=== PATIENT | female | born 2000 | race Asian ===

== ENCOUNTER 2025-04-07 14:09 | Emergency (ER) | payer OTHER, SELFPAY ==
[2025-04-07] VITALS (19 sets, daily range): BP systolic 107–136; BP diastolic 58–105; PULSE 54–85; RESP 18; TEMP 36.4; O2SAT 98–100; BMI 22.8
[2025-04-07 15:02] LABS: Add Manual Diff / Slide Review NO; Hematocrit 37.7 % (36-46); Hemoglobin 12.8 g/dL (12.0-16.0); Lymphocytes Absolute Auto 2800 /uL (1100-4500); Mean Corpuscular HGB Conc 34.0 % (30-36); Mean Corpuscular Hemoglobin 29.5 PG (26-34); Mean Corpuscular Volume 86.7 fL (80-100); Platelet Count 215 X10^3/uL (150-400)
[2025-04-07 15:11] LABS: Lipase 40 U/L (23-300)
[2025-04-07 15:12] LABS: Albumin 4.5 g/dL (3.5-5.0); Albumin Globulin Ratio 1.2 (1.0-2.8); Blood Urea Nitrogen 10 mg/dL (7-17); Calcium 9.5 mg/dL (8.4-10.2); Carbon Dioxide 22 mmol/L (22-32); Chloride 107 mmol/L (98-107); Culture Indicated Urine Cult Not Indicated; Estimated Glomerular Filt Rate > 60 mL/min (>60); Globulin 3.7 g/dL (1.7-4.1); Glucose 88 mg/dL (70-99); HEMOLYSIS < 15 (0-50); Potassium 4.4 mmol/L (3.4-5.1); Sodium 139 mmol/L (137-145); Total Protein 8.2 g/dL (6.3-8.2)
[2025-04-07 15:13] LABS: Alanine Aminotransferase 23 IU/L (<35); Alkaline Phosphatase 73 U/L (38-126)
--- NOTE | 2025-04-07 15:26 | EKG_ITS ---
[facility] [address], [place] [address] Test Date: 2025-04-07 Pat Name: Sharla Stratton Department: [facility] Room: Gender: Female Bladder Trimmer: SUDHIR : 2000 Requested By: Order Number: [id number] Reading MD: Cole Keller MD Measurements Intervals [place] Rate: 51 P: 57 ME: 128 QRS: 60 QRSD: 76 T: 50 QT: 388 QTc: 357 Interpretive Statements Sinus bradycardia with sinus arrhythmia Electronically Signed On 04-07-2025 17:16:39 PDT by Cole Keller MD
--- NOTE | 2025-04-07 16:29 | ED_ITS ---
HPI - Abdominal Pain General Chief Complaint: Abdominal Pain Stated Complaint: Lower Abdominal Pain, Right Rib Time Seen by Provider: 04/07/25 16:28 Source: patient, RN notes reviewed and old records reviewed Mode of arrival: Ambulatory Limitations: no limitations History of Present Illness HPI narrative: 24-year-old female with complaint of right upper abdominal pain intermittently in waves it radiates to the back had similar episode about a year ago Related Data Allergies Allergy/AdvReac Type Severity Reaction Status Date / Time No Known Drug Allergies Allergy Verified 04/07/25 14:20 Review of Systems Review of Systems ROS Unobtainable: All systems reviewed & are unremarkable except as noted in HPI and below Patient History Smoking Status: Never smoker Exam Initial Vital Signs Initial Vital Signs: Vital Signs Temperature 97.5 F L 04/07/25 14:19 Pulse Rate 79 04/07/25 14:19 Respiratory Rate 18 04/07/25 14:19 Blood Pressure 136/87 04/07/25 14:19 Pulse Oximetry 98 04/07/25 14:19 Oxygen Delivery Method Room Air 04/07/25 14:19 Course Orders Ordered: ED Orders 04/07/25 14:24 EKG-12 Lead Stat 04/07/25 14:45 Complete Blood Count AUTO DIFF Stat Comprehensive Metabolic Panel Stat Lipase Stat Test Urine Stat Urine Microscopic Stat 04/07/25 14:55 Urine Culture Stat Ondansetron HCl (Ondansetron 4 Mg/2 Ml Inj) 4 mg IV NOW PRN PRN Reason: Nausea And Vomiting Ondansetron HCl (Ondansetron 4 Mg Odt) 4 mg PO NOW PRN PRN Reason: Nausea And Vomiting Vital Signs Vital signs: Vital Signs - 8 hr 04/07/25 14:19 04/07/25 14:57 04/07/25 14:58 Temperature 97.5 F L Pulse Rate 79 56 L Respiratory Rate 18 18 Blood Pressure 136/87 108/58 L Pulse Oximetry 98 99 Oxygen Delivery Method Room Air 04/07/25 14:58 04/07/25 15:00 04/07/25 15:00 Temperature Pulse Rate 61 67 Respiratory Rate 18 Blood Pressure 112/68 Pulse Oximetry 98 98 Oxygen Delivery Method 04/07/25 15:30 04/07/25 15:30 04/07/25 16:00 Temperature Pulse Rate 57 L 57 L Respiratory Rate Blood Pressure 114/80 Pulse Oximetry 98 98 Oxygen Delivery Method 04/07/25 16:00 Temperature Pulse Rate Respiratory Rate Blood Pressure 115/77 Pulse Oximetry Oxygen Delivery Method MDM - Abdominal Pain Lab Data 04/07/25 14:45 04/07/25 14:45 Labs: Lab Results 04/07/25 Range/Units 14:45 WBC 7.5 (4.5-11.0) X10^3/uL RBC 4.35 (4.0-5.2) X10^6/uL Hgb 12.8 (12.0-16.0) g/dL Hct 37.7 (36-46) % MCV 86.7 (80-100) fL MCH 29.5 (26-34) PG MCHC 34.0 (30-36) % RDW 12.4 (11.6-14.8) % Plt Count 215 (150-400) X10^3/uL Neut % (Auto) 49.6 L (50-75) % Lymph % (Auto) 37.3 (25-40) % [place]elope % (Auto) 6.5 (3-14) % Eos % (Auto) 6.2 H (2-4) % Baso % (Auto) 0.4 (0-2) % Neut # (Auto) 3700 (6996-9141) /uL Lymph # (Auto) 2800 (1223-8855) /uL [place]elope # (Auto) 500 (0-900) /uL Eos # (Auto) 500 H (0-450) /uL Baso # (Auto) 0 (0-100) /uL Sodium 139 (137-145) mmol/L Potassium 4.4 (3.4-5.1) mmol/L Chloride 107 (98-107) mmol/L Carbon Dioxide 22 (22-32) mmol/L BUN 10 (7-17) mg/dL Creatinine 0.71 (0.52-1.04) mg/dL Estimated GFR > 60 (>60) mL/min BUN/Creatinine Ratio 14.1 (6-22) Glucose 88 (70-99) mg/dL Calcium 9.5 (8.4-10.2) mg/dL Total Bilirubin 0.8 (0.2-1.3) mg/dL AST 47 H (14-36) IU/L ALT 23 (<35) IU/L Alkaline Phosphatase 73 (38-126) U/L Total Protein 8.2 (6.3-8.2) g/dL Albumin 4.5 (3.5-5.0) g/dL Globulin 3.7 (1.7-4.1) g/dL Albumin/Globulin Ratio 1.2 (1.0-2.8) Lipase 40 (23-300) U/L Urine RBC 0-1/hpf (0-5/HPF) Urine WBC 0-1/hpf (0-5/HPF) Ur Squamous Epith Cells 5-10 /hpf H (0-5/HPF) Urine Bacteria None seen (None) Ur Culture Indicated? Cult not indicated Vol Urine Centrifuged 10ml (spun) Urine Test Negative (Negative) Point of care testing: Urine Dip Bedside Urine Glucose Negative Bedside Urine Bilirubin - Negative Bedside Urine Ketone - Negative Urine Specific [place] 1.010 Bedside Urine Occult Blood - Negative Bedside Urine pH 8.0 Bedside Urine Protein +/- 15 Bedside Urine Urobilinogen - Negative Bedside Urine Nitrite - Negative Bedside Urine Leukocytes - Negative Esterase ECG Data Attestation: I personally reviewed and interpreted this ECG as follows: Prior ECG tracings: not available for review Interpretation: Sinus bradycardia with sinus arrhythmia, rate of 51 TN 128 QRS is 76 QTC 357, no acute ST changes appreciated. MDM Narrative Medical decision making narrative: Labs show normal white count hemoglobin and platelets, chemistries are overall appropriate BUN and creatinine is normal glucose is 88, AST is 47 normal bilirubin normal ALT alk-phos is 73 lipase is 40. Point of care urine shows protein no nitrates or leuks. One RBC 1 white blood cell 5 to 10 squamous no bacteria. Urine is negative. EKG shows sinus bradycardia with sinus arrhythmia. Right upper quadrant ultrasound
--- NOTE | 2025-04-07 18:06 | ED_ITS ---
HPI - Abdominal Pain General Chief Complaint: Abdominal Pain Stated Complaint: Lower Abdominal Pain, Right Rib Time Seen by Provider: 04/07/25 16:28 Source: patient Mode of arrival: Ambulatory History of Present Illness HPI narrative: 24-year-old female from the [place], [place] two [place] ago had right upper quadrant abdominal pain, clinically suspicious by medical provider then to be gallbladder problem, no imaging ultrasound or CT, had another similar episode 8 months ago also in the [place], again had no imaging. She has tended to avoid fatty foods. Recently she has been eating more avocados at [address] she is planning to be working for the summer. She has right upper quadrant abdominal pain that is been constant since 4:00 p.m. yesterday, no nausea or vomiting. No diarrhea. No injury trauma new activities. No painful or frequent urination. No recent cough or shortness of breath. Pain not necessarily worse with deep breathing. Last bowel movement earlier today unremarkable without red black color, looseness, mucous. No prior EGD recalled. No history of inflammatory bowel disease, Crohn's disease, ulcerative colitis. MD complaint: abdominal pain Related Data Allergies Allergy/AdvReac Type Severity Reaction Status Date / Time No Known Drug Allergies Allergy Verified 04/07/25 14:20 Patient History Social History Smoking Status: Never smoker Smoking Status: Never smoker Exam Narrative Exam Narrative: GENERAL: Well-developed patient, in mild distress. HEAD: Atraumatic. Normocephalic. EYES: Pupils equal round and reactive. Extraocular motions intact. No scleral icterus. No injection or drainage. ENT: Nose without bleeding, purulent drainage. Throat without erythema, tonsillar hypertrophy or exudate. Airway patent. NECK: Trachea midline. Non tender CARDIOVASCULAR: Regular rate and rhythm without murmurs, gallops, or rubs. RESPIRATORY: Clear to auscultation. Breath sounds equal bilaterally. No wheezes, rales, or rhonchi. GASTROINTESTINAL: Abdomen soft, non-tender, nondistended. EXTREMITIES: No edema or joint tenderness. BACK: Nontender without deformity or crepitance. No flank tenderness. NEURO: AOx3. Motor functions grossly nonfocal. SKIN: No rash or erythema of visible areas Initial Vital Signs Initial Vital Signs: Vital Signs Temperature 97.5 F L 04/07/25 14:19 Pulse Rate 79 04/07/25 14:19 Respiratory Rate 18 04/07/25 14:19 Blood Pressure 136/87 04/07/25 14:19 Pulse Oximetry 98 04/07/25 14:19 Oxygen Delivery Method Room Air 04/07/25 14:19 Course Orders Ordered: ED Orders 04/07/25 18:34 US abdomen limited Stat Discontinued Medications Fentanyl (Fentanyl 100 Mcg/2 Ml Inj) 50 mcg IV NOW ONE Stop: 04/07/25 19:10 Last Admin: 04/07/25 19:41 Dose: Not Given Documented By: Fentanyl 1,000 mcg/ Dextrose 250 mls @ 11.589 mls/hr IV TITRATE ADALID; Protocol Last Admin: 04/07/25 19:41 Dose: Not Given Documented By: Ondansetron HCl (Ondansetron 4 Mg/2 Ml Inj) 4 mg IV NOW PRN PRN Reason: Nausea And Vomiting Ondansetron HCl (Ondansetron 4 Mg Odt) 4 mg PO NOW PRN PRN Reason: Nausea And Vomiting Tramadol HCl (Tramadol 50 Mg Prepack) 1 bottle MISC DIRECTED ONE Stop: 04/07/25 21:27 Last Admin: 04/07/25 21:38 Dose: 1 bottle Documented By: Vital Signs Vital signs: Vital Signs - 8 hr 04/07/25 19:30 04/07/25 19:30 04/07/25 20:00 Pulse Rate 62 65 Respiratory Rate Blood Pressure 117/78 Pulse Oximetry 99 99 Oxygen Delivery Method Room Air 04/07/25 20:00 04/07/25 20:30 04/07/25 20:31 Pulse Rate 57 L 68 Respiratory Rate Blood Pressure 120/80 Pulse Oximetry 100 100 Oxygen Delivery Method Room Air 04/07/25 20:31 04/07/25 21:00 04/07/25 21:00 Pulse Rate 85 75 Respiratory Rate 18 Blood Pressure 136/105 H 133/89 Pulse Oximetry 99 98 Oxygen Delivery Method 04/07/25 21:30 04/07/25 21:30 Pulse Rate 69 Respiratory Rate Blood Pressure 134/69 Pulse Oximetry 99 Oxygen Delivery Method Room Air MDM - Abdominal Pain Lab Data Attestation: I reviewed the patient's lab results. Lab results narrative: White blood cell count 7500, hemoglobin 12.8, platelets adequate. Glucose 88, renal function normal. Serum CO2 normal. Electrolytes unremarkable. Liver functions and lipase normal. Urine test negative. Urine dip negative. 04/07/25 14:45 04/07/25 14:45 Labs: Lab Results 04/07/25 Range/Units 14:45 WBC 7.5 (4.5-11.0) X10^3/uL RBC 4.35 (4.0-5.2) X10^6/uL Hgb 12.8 (12.0-16.0) g/dL Hct 37.7 (36-46) % MCV 86.7 (80-100) fL MCH 29.5 (26-34) PG MCHC 34.0 (30-36) % RDW 12.4 (11.6-14.8) % Plt Count 215 (150-400) X10^3/uL Neut % (Auto) 49.6 L (50-75) % Lymph % (Auto) 37.3 (25-40) % [place] % (Auto) 6.5 (3-14) % Eos % (Auto) 6.2 H (2-4) % Baso % (Auto) 0.4 (0-2) % Neut # (Auto) 3700 (9097-8057) /uL Lymph # (Auto) 2800 (8040-2308) /uL [place] # (Auto) 500 (0-900) /uL Eos # (Auto) 500 H (0-450) /uL Baso # (Auto) 0 (0-100) /uL Sodium 139 (137-145) mmol/L Potassium 4.4 (3.4-5.1) mmol/L Chloride 107 (98-107) mmol/L Carbon Dioxide 22 (22-32) mmol/L BUN 10 (7-17) mg/dL Creatinine 0.71 (0.52-1.04) mg/dL Estimated GFR > 60 (>60) mL/min BUN/Creatinine Ratio 14.1 (6-22) Glucose 88 (70-99) mg/dL Calcium 9.5 (8.4-10.2) mg/dL Total Bilirubin 0.8 (0.2-1.3) mg/dL AST 47 H (14-36) IU/L ALT 23 (<35) IU/L Alkaline Phosphatase 73 (38-126) U/L Total Protein 8.2 (6.3-8.2) g/dL Albumin 4.5 (3.5-5.0) g/dL Globulin 3.7 (1.7-4.1) g/dL Albumin/Globulin Ratio 1.2 (1.0-2.8) Lipase 40 (23-300) U/L Urine RBC 0-1/hpf (0-5/HPF) Urine WBC 0-1/hpf (0-5/HPF) Ur Squamous Epith Cells 5-10 /hpf H (0-5/HPF) Urine Bacteria None seen (None) Ur Culture Indicated? Cult not indicated Vol Urine Centrifuged 10ml (spun) Urine Test Negative (Negative) Point of care testing: Urine Dip Bedside Urine Glucose Negative Bedside Urine Bilirubin - Negative Bedside Urine Ketone - Negative Urine Specific [place] 1.010 Bedside Urine Occult Blood - Negative Bedside Urine pH 8.0 Bedside Urine Protein +/- 15 Bedside Urine Urobilinogen - Negative Bedside Urine Nitrite - Negative Bedside Urine Leukocytes - Negative Esterase Imaging Data Right upper quadrant abdominal ultrasound: Radiologist's Impression: [place] [address] Ultrasound Report Signed Patient: Sharla Stratton MR#: [id number] : 2000 Acct:[id number] Age/Sex: 24 / F Date of Service: 04/07/25 Loc: ED Accession Number: [id number] Procedure: US abdomen limited Ordering Provider: Zia Molina MD PROCEDURE: US ABDOMEN LIMITED INDICATIONS: RUQ abd pain since yest TECHNIQUE: Real-time scanning was performed of the abdominal and retroperitoneal organs, with image documentation. COMPARISON: None. FINDINGS: Liver: Liver is normal in size and homogeneous in echotexture. Gallbladder: Mobile foci of increased echogenicity are present. No wall thickening. No pericholecystic edema. Negative sonographic Pereyra's sign. Biliary ducts: Intrahepatic bile ducts are non-dilated. Extrahepatic bile duct caliber measures 4.3 mm. Normal is 6-7 mm or less in diameter, or 10 mm or less post-cholecystectomy. Pancreas: Visualized portions of the pancreas are sonographically normal. Miscellaneous: No free abdominal fluid. IMPRESSION: Mobile foci of increased echogenicity are present consistent with cholelithiasis. No imaging appearance of cholecystitis. Dictated by: Flaquita Pandey M.D. on 04/07/2025 at 20:51 Approved by: Flaquita Pandey M.D. on 04/07/2025 at 20:52 ECG Data Attestation: I personally reviewed and interpreted this ECG as follows: Interpretation: 1526, sinus bradycardia with sinus arrhythmia, ventricular rate 51. No obvious ST segment elevation or depression changes. IA 128, QRS 76, QTC 357. MDM Narrative Medical decision making narrative: 24-year-old female working at [employer] on [facility] for the summer, visiting from the [facility], has had previous bouts right upper quadrant abdominal pain since last year, clinically suspected to have gallstones, no previous imaging, since 4:00 p.m. yesterday after eating some avocados has had right-sided upper abdominal pain. Afebrile, sirs screen negative. Mild tenderness right upper quadrant on deep palpation only. Lab data: White blood cell count 7500, hemoglobin 12.8, platelets adequate. Glucose 88, renal function normal. Serum CO2 normal. Electrolytes unremarkable. Liver functions and lipase normal. Urine test negative. Urine dip negative. Declines pain medication when offered, ultrasound right upper quadrant abdomen ordered. Ultrasound right upper quadrant abdomen. IMPRESSION: Mobile foci of increased echogenicity are present consistent with cholelithiasis. No imaging appearance of cholecystitis. See radiology report. Symptomatic gallstones, no imaging evidence for acute infection/inflammation at this time. Working at [facility] [employer], consider outpatient elective surgical consultation. Given contact information for [facility]. Advised to avoid fatty foods including avocados, also dairy products, that might stimulate her gallbladder further. Home pack tramadol to use if needed. Discharged home with fellow [place] personnel. Return precautions discussed. Discharge Plan Departure Patient Disposition: Home Clinical Impression: Cholelithiasis Activity Restrictions/Additional Instructions: Recurrent right upper quadrant abdominal pain, again since last night after eating recent avocados that are fairly fatty. No known prior documentation of gallstones although suspected clinically in the past. No prior imaging studies before tonight. No fever on triage. Vital signs normal. Some tenderness on deep palpation only. Blood test studies reassuring, urine test negative. Ultrasound showed presence of multiple gallstones, however no current infection/inflammatory changes. Symptomatic gallstones, consider elective surgery consultation for surgical removal. Contact information given for [facility], office of Dr. Carmen, to obtain elective surgery consultation. Take Tylenol and or Motrin as needed for pain control. Home pack of tramadol for pain control given. Avoid fatty foods and dairy products. Follow up with General surgery for elective surgical options discussion, gallbladder removal elective surgery options. Return earlier to this/nearest emergency department for any change worsening symptoms or any concerns prior. Referrals: Marcos Carmen MD [Physician, General Surgery] Stand Alone Forms: Patient Portal/API
--- NOTE | 2025-04-07 18:34 | DI.US.S_ITS ---
PROCEDURE: US ABDOMEN LIMITED INDICATIONS: RUQ abd pain since yest TECHNIQUE: Real-time scanning was performed of the abdominal and retroperitoneal organs, with image documentation. COMPARISON: None. FINDINGS: Liver: Liver is normal in size and homogeneous in echotexture. Gallbladder: Mobile foci of increased echogenicity are present. No wall thickening. No pericholecystic edema. Negative sonographic Pereyra's sign. Biliary ducts: Intrahepatic bile ducts are non-dilated. Extrahepatic bile duct caliber measures 4.3 mm. Normal is 6-7 mm or less in diameter, or 10 mm or less post-cholecystectomy. Pancreas: Visualized portions of the pancreas are sonographically normal. Miscellaneous: No free abdominal fluid. IMPRESSION: Mobile foci of increased echogenicity are present consistent with cholelithiasis. No imaging appearance of cholecystitis. Dictated by: Flaquita Pandey M.D. on 04/07/2025 at 20:51 Approved by: Flaquita Pandey M.D. on 04/07/2025 at 20:52
[2025-04-07] MEDS: TRAMADOL 50 MG PREPACK 1 BOTTLE MISC (21:38)
--- NOTE | 2025-04-20 15:26 | PC.NURSE ---
patient called back after receiving a letter about her visit with culture results. notified her the results and prescription.
== END 2025-04-07 21:51 | disposition home or self-care (01) ==
PROVIDERS: Emergency Medicine; Emergency Provider Emergency Medicine
DX: K80.20 Calculus of gallbladder without cholecystitis without obstruction (principal)
CPT/HCPCS: 36415; 76705; 80053; 81003; 81015; 81025; 83690; 85025; 87086; 93005; 93010; 99284